=== PATIENT | male | born 1980 | race Caucasian/White ===

== ENCOUNTER 2017-02-02 13:33 | Emergency (ER) | payer OTHER, BC ==
[2017-02-02 14:16] VITALS: BP 130/109
[2017-02-02] MEDS ORDERED: fentaNYL 100 MCG/2 ML SDV IVPUSH ONE ×3 (14:33→14:55)
[2017-02-02] MEDS ORDERED: Ondansetron 4 MG/2 ML SDV IVPUSH ONE (14:34)
[2017-02-02] MEDS ORDERED: fentaNYL 100 MCG/2 ML SDV ONE (14:36)
[2017-02-02] MEDS ORDERED: Ondansetron 4 MG/2 ML SDV ONE (14:37)
[2017-02-02] MEDS ORDERED: Lactated Ringers 1,000 ML ONE (14:37)
[2017-02-02] MEDS: fentaNYL 100 MCG/2 ML SDV ONE (14:40)
[2017-02-02] MEDS ORDERED: Lactated Ringers 1,000 ML IV SCH (14:45)
[2017-02-02] MEDS ORDERED: HYDROmorphone 0.5 MG/0.5 ML Syringe IVPUSH STA (15:28)
[2017-02-02] MEDS ORDERED: HYDROmorphone 0.5 MG/0.5 ML Syringe IVPUSH ONE ×2 (15:37→16:22)
[2017-02-02] MEDS ORDERED: Lidocaine 2% Jelly 5 ML Tube TOP ONE (16:27)
[2017-02-02] MEDS ORDERED: Lidocaine 2% Jelly 10 ML Urojet MUCMEM ONE (16:30)
--- NOTE | 2017-02-02 16:35 | EDM.PDOC ---
ED HPI GENERAL MEDICAL PROBLEM - General Chief Complaint: Flank Pain Stated Complaint: BACK PAIN POSSIBLE KIDNEY STONE Time Seen by Provider: 02/02/17 13:39 - History of Present Illness INITIAL COMMENTS - FREE TEXT/NARRATIVE: 36-year-old male presents emergency room with difficulty voiding and developing severe pain. Th evening the patient had problems with what sounds like urinary frequency he was unable to completely empty. This is progressively gotten worse the patient was seen on the [place] [facility] on Friday diagnosed with UTI started on Cipro 500 mg twice a day. His symptoms are not improving they are progressively getting worse and since early this morning the patient has had very severe pain. The pain seems to be mostly noticed in his penis at all times is not much affected by voiding. He does not have back pain or flank pain associated with this. The patient has very severe pain he cannot get comfortable. He may have had fevers night but now just has occasional chills with the pain. Penis Pain Score (Numeric/FACES): 10 - Related Data Allergies Allergy/AdvReac Type Severity Reaction Status Date / Time No Known Allergies Allergy Verified 02/02/17 14:08 Home Meds: Home Meds Ciprofloxacin HCl [Cipro] 250 mg PO BID 02/02/17 [History] Pumpkin Seed Extract/Soy Germ [Azo Bladder Control Capsule] 2 tab PO PRN [History] Past Medical History - Past Health History Medical/Surgical History: Denies Medical/Surgical History Genitourinary History: Reports: Other (See Below) - Past Surgical History Male Surgical History: Reports: Vasectomy Other Male Surgeries/Procedures: one month ago Social & Family History - Family History Family Medical History: Noncontributory - Tobacco Use Smoking Status *Q: Never Smoker - Caffeine Use Caffeine Use: Reports: Coffee, Other Other Caffeine Use: pre workout - Recreational Drug Use Recreational Drug Use: No ED ROS GENERAL - Review of Systems Review Of Systems: See Below Constitutional: Reports: Chills. Denies: Fever HEENT: Reports: No Symptoms Respiratory: Reports: No Symptoms Cardiovascular: Reports: No Symptoms Endocrine: Reports: No Symptoms GI/Abdominal: Reports: No Symptoms : Reports: Frequency, Urgency. Denies: Dysuria, Flank Pain, Hematuria ED EXAM, RENAL/ - Physical Exam Exam: See Below Exam Limited By: Other (Patient is extremely uncomfortable) General Appearance: Alert, Severe Distress Head: Atraumatic, Normocephalic Neck: Normal Inspection, Supple, Non-Tender, Full Range of Motion Respiratory/Chest: No Respiratory Distress, Lungs Clear, Normal Breath Sounds Cardiovascular: Regular Rate, Rhythm, No Edema, No Murmur GI/Abdominal: Normal Bowel Sounds, Soft, Other (He is uncomfortable but no pain identified with abdominal palpation no rebound or guarding noted) Back Exam: Normal Inspection. No: CVA Tenderness (L), CVA Tenderness (R) Extremities: Normal Inspection, No Pedal Edema Course - Vital Signs Last Recorded V/S: Last Vital Signs Temp 36.6 C 02/02/17 14:12 Pulse 105 H 02/02/17 14:12 Resp 24 H 02/02/17 14:12 BP 130/109 H 02/02/17 14:12 Pulse Ox 100 02/02/17 14:12 - Orders/Labs/Meds Orders: Active Orders 24 hr Category Date Time Status Schmid Catheter Insertion [Insert Urinary Catheter] [OM. Care 02/02/17 16:30 Ordered PC] Q24H Urinary Catheter Assessment [RC] ASDIRECTED Care 02/02/17 16:25 Active Abdomen Pelvis wo Cont [CT] Stat Exams 02/02/17 14:29 Taken CULTURE URINE [RM] Stat Lab 02/02/17 17:29 Uncollected Lactated Ringers [Ringers, Lactated] 1,000 ml Med 02/02/17 14:45 Active IV ASDIRECTED Medication Orders Lactated Ringer's (Ringers, Lactated) 1,000 mls @ 100 mls/hr IV ASDIRECTED KENIA Last Admin: 02/02/17 14:37 Dose: 100 mls/hr Labs: Laboratory Tests 02/02/17 02/02/17 02/02/17 Range/Units 14:05 14:05 16:47 WBC 8.48 (4.23-9.07) K/mm3 RBC 5.28 (4.63-6.08) M/mm3 Hgb 15.3 (13.7-17.5) gm/L Hct 45.7 (40.1-51.0) % MCV 86.6 (79.0-92.2) fl MCH 29.0 (25.7-32.2) pg MCHC 33.5 (32.2-35.5) g/dl RDW Std Deviation 39.1 (35.1-43.9) fL Plt Count 225 (163-337) K/mm3 MPV 10.1 (9.4-12.3) fl Neutrophils % (Manual) 72 H (40-60) % Band Neutrophils % 0 (0-10) % Lymphocytes % (Manual) 19 L (20-40) % Atypical Lymphs % 0 % Monocytes % (Manual) 8 (2-10) % Eosinophils % (Manual) 1 (0.8-7.0) % Basophils % (Manual) 0 L (0.2-1.2) Platelet Estimate Adequate Plt Morphology Comment Normal RBC Morph Comment Normal Sodium 139 (136-145) mEq/L Potassium 3.9 (3.5-5.1) mEq/L Chloride 100 (98-107) mEq/L Carbon Dioxide 27 (21-32) mEq/L Anion Gap 15.9 H (5-15) BUN 15 (7-18) mg/dL Creatinine 1.2 (0.7-1.3) mg/dL Est Cr Clr Drug Dosing 91.51 mL/min Estimated GFR (MDRD) > 60 (>60) mL/min BUN/Creatinine Ratio 12.5 L (14-18) Glucose 102 (74-106) mg/dL Calcium 10.1 (8.5-10.1) mg/dL Total Bilirubin 0.4 (0.2-1.0) mg/dL AST 17 (15-37) U/L ALT 25 (16-63) U/L Alkaline Phosphatase 34 L (46-116) U/L Total Protein 8.0 (6.4-8.2) g/dl Albumin 3.9 (3.4-5.0) g/dl Globulin 4.1 gm/dL Albumin/Globulin Ratio 1.0 (1-2) Urine Color [place] H (Yellow) Urine Appearance Clear (Clear) Urine pH 6.5 (5.0-8.0) Ur Specific [place] 1.015 (1.005-1.030) Urine Protein 1+ H (Negative) Urine Glucose (UA) Trace H (Negative) Urine Ketones Trace H (Negative) Urine Occult Blood Negative (Negative) Urine Nitrite Positive H (Negative) Urine Bilirubin Negative (Negative) Urine Urobilinogen 1.0 (0.2-1.0) Ur Leukocyte Esterase Negative (Negative) Urine RBC 0-5 (0-5) /hpf Urine WBC 0-5 (0-5) /hpf Ur Epithelial Cells Not seen (0-5) /hpf Amorphous Sediment Moderate H (NOT SEEN) /hpf Urine Bacteria Moderate H (FEW) /hpf Urine Mucus Not seen (FEW) /hpf Meds: Medications Generic Name Dose Route Start Last Admin Trade Name Freq PRN Reason Stop Dose Admin Lactated Ringer's 1,000 mls @ 100 mls/hr 02/02/17 14:45 02/02/17 14:37 Ringers, Lactated IV 100 mls/hr ASDIRECTED KENIA Administration Discontinued Medications Generic Name Dose Route Start Last Admin Trade Name Freq PRN Reason Stop Dose Admin Fentanyl Confirm 02/02/17 14:22 02/02/17 14:40 Sublimaze Administered 02/02/17 14:23 100 mcg Dose Administration 100 mcg .ROUTE .STK-MED ONE Fentanyl 100 mcg 02/02/17 14:33 02/02/17 14:17 Sublimaze IVPUSH 02/02/17 14:34 100 mcg ONETIME ONE Administration Fentanyl 100 mcg 02/02/17 14:36 02/02/17 14:43 Sublimaze IVPUSH 02/02/17 14:37 Not Given ONETIME ONE Fentanyl Confirm 02/02/17 14:36 02/02/17 14:43 Sublimaze Administered 02/02/17 14:37 Not Given Dose 100 mcg .ROUTE .STK-MED ONE Fentanyl 100 mcg 02/02/17 14:55 02/02/17 15:04 Sublimaze IVPUSH 02/02/17 14:56 100 mcg ONETIME ONE Administration Hydromorphone HCl 0.5 mg 02/02/17 15:28 02/02/17 15:30 Dilaudid IVPUSH 02/02/17 15:29 0.5 mg STAT STA Administration Hydromorphone HCl 0.5 mg 02/02/17 15:37 02/02/17 15:49 Dilaudid IVPUSH 02/02/17 15:38 0.5 mg STAT ONE Administration Hydromorphone HCl 0.5 mg 02/02/17 16:22 02/02/17 16:28 Dilaudid IVPUSH 02/02/17 16:23 0.5 mg ONETIME ONE Administration Lactated Ringer's Confirm 02/02/17 14:37 02/02/17 14:43 Ringers, Lactated Administered 02/02/17 14:38 Not Given Dose 1,000 mls @ as directed .ROUTE .STK-MED ONE Lidocaine HCl 5 ml 02/02/17 16:27 02/02/17 17:34 Xylocaine 2% Jelly TOP 02/02/17 16:28 Not Given ONETIME ONE Lidocaine HCl Confirm 02/02/17 16:36 02/02/17 17:34 Xylocaine 2% Jelly Administered 02/02/17 16:37 Not Given Dose 10 ml .ROUTE .STK-MED ONE Lidocaine HCl 10 ml 02/02/17 16:30 02/02/17 16:30 Xylocaine 2% Jelly MUCMEM 02/02/17 16:31 10 ml ONETIME ONE Administration Ondansetron HCl 4 mg 02/02/17 14:34 02/02/17 14:36 Zofran IVPUSH 02/02/17 14:35 4 mg ONETIME ONE Administration Ondansetron HCl Confirm 02/02/17 14:37 02/02/17 14:43 Zofran Administered 02/02/17 14:38 Not Given Dose 4 mg .ROUTE .STK-MED ONE - Re-Assessments/Exams Free Text/Narrative Re-Assessment/Exam: 02/02/17 16:34 Awaiting UA laboratory evaluation as far as chemistries and CBC is unrevealing. CT KUB was obtained which does not show any stone or evidence of hydronephrosis however he's got a hugely distended bladder we'll place a Schmid. 02/02/17 17:45 Patient had a Schmid placed 1100 mL of urine came out patient feels much better. Urinalysis is not suggestive of infectious process however is positive for nitrates and is orange most likely due to the azo he took earlier today. Patient 's case discussed with Dr. Reaves neurologist at [facility] in [place] who recommends leaving the Schmid in place until he is evaluated by urology make sure he's on a minimum of 10 days of Cipro. And follow-up with urology no sooner than Friday of this next week ideally 7 days a Schmid treatment could be more beneficial. 02/02/17 17:49 Patient is given a prescription from the machine in the waiting room Cipro No. 14 500 mg 1 by mouth twice a day this way he will for sure have a 14 day course Departure - Departure Time of Disposition: 17:50 Disposition: Home, Self-Care 01 Clinical Impression: Urinary retention - Discharge Information Referrals: Dylon Schaefer MD [Primary Care Provider] - Forms: ED Department Discharge Additional Instructions: Return to the emergency room with any questions problems or worsening symptoms. Push fluids make sure you're getting the equivalent of 8 12 ounce glasses a day. Follow up with [phone] no sooner than Friday of this next week. The plan is to keep the catheter in place until you are evaluated by urology. You have been given another prescription for Cipro 500 mg #14 from the machine in the waiting room as you should take this antibiotic for a minimum of 10-14 days. - My Orders Last 24 Hours: My Active Orders 02/02/17 14:29 Abdomen Pelvis wo Cont [CT] Stat 02/02/17 14:45 Lactated Ringers [Ringers, Lactated] 1,000 ml IV ASDIRECTED 02/02/17 16:25 Urinary Catheter Assessment [RC] ASDIRECTED 02/02/17 16:30 Schmid Catheter Insertion [Insert Urinary Catheter] [OM.PC] Q24H 02/02/17 17:29 CULTURE URINE [RM] Stat - Assessment/Plan Last 24 Hours: My Active Orders 02/02/17 14:29 Abdomen Pelvis wo Cont [CT] Stat 02/02/17 14:45 Lactated Ringers [Ringers, Lactated] 1,000 ml IV ASDIRECTED 02/02/17 16:25 Urinary Catheter Assessment [RC] ASDIRECTED 02/02/17 16:30 Schmid Catheter Insertion [Insert Urinary Catheter] [OM.PC] Q24H 02/02/17 17:29 CULTURE URINE [RM] Stat
[2017-02-02] MEDS ORDERED: Lidocaine 2% Jelly 10 ML Urojet ONE (16:36)
[2017-02-02] MEDS ORDERED: Levofloxacin 500 MG Tab PO ONE (20:46)
--- NOTE | 2017-02-03 09:20 | CT ---
CT abdomen and pelvis Technique: Multiple axial sections were obtained from above the dome of the diaphragm inferiorly through the pubic symphysis. Intravenous and oral contrast was not utilized. Comparison: No previous study. Findings: Visualized lung bases show nothing acute. Liver shows no focal parenchymal abnormality. Spleen appears within normal limits. Adrenal glands show no nodule. Pancreas is within normal limits. Kidneys show no abnormal calcifications. No ureteral dilatation or ureteral stone is seen. Gallbladder shows no abnormal calcifications. Aorta shows no aneurysmal dilatation. No retroperitoneal adenopathy or mesenteric abnormalities are seen. Appendix is seen which appears normal. Bladder is mildly distended with urine. No pelvic mass or adenopathy is seen. No free fluid or inflammatory change is identified within the abdomen or pelvis. Bone window settings were reviewed which appear within normal limits for the patient's age. Impression: 1. Mildly dilated bladder. This may be incidental but please exclude that patient has no bladder outlet obstruction. 2. No renal calculi, ureteral dilatation or ureteral stone is seen. 3. No additional abnormality is appreciated on noncontrast CT study of the abdomen and pelvis performed as a ureteral stone protocol. Diagnostic code #3 I agree with preliminary report issued by [facility] ([facility] preliminary report dictated on 02/02/17, 5:01 PM Central Time)
== END 2017-02-02 18:15 | disposition home or self-care (01) ==
LOC: JD.ED 13:33
DX: R33.9 Retention of urine, unspecified (principal); Z98.890 Other specified postprocedural states
CPT/HCPCS: 36415; 51702; 74176; 80053; 81001; 85025; 87086; 96365; 96366; 96375; 96376; 99284; A9270; J1170; J2405; J3010; J7120